=== PATIENT | male | born 1960 | race Caucasian/White ===

== ENCOUNTER → 2018-03-07 | Outpatient (CLI) | payer MEDICARE, OTHER ==
[~2018-03-07] MED LIST: ABAC300; ALBU90OI INH; AMLO10 PO; AMOCLA875 PO; Ceftriaxone2 G1 IV; Emla Cream30 GM TP; FENT25TP TOP; FENT50TP TOP; FLONASE ALLERG9.9 ML; GLIM2 PO; IBUP800 PO; LATA.005SO BOTHEYES; LATANOPROST2.5 ML OP; LEVO750 PO; LISI20 PO; LISI5 PO; METF500 PO; OMEP20ER PO; ONDA8 PO; OXYACE5T PO; OXYC10ER PO; OXYC10TA19 PO; OXYC1TAB11 PO; PROB500 PO; PROCTOSOL-HC30 GM PR; PROM25 PO; Percocet 10-321 EACH PO; Prinivil10 MG PO; TAMS.4ER PO; TRIHYD253A PO; TRIHYD253B PO; Testostero100 MG/1 M IM; Triamterene W/1 EACH PO; VARE1 PO; [UNRECOGNIZED DRUG - OTHER]
== END ==
LOC: LAB SHORT 08:16 → PLD 08:16
DX: D48.5 Neoplasm of uncertain behavior of skin (principal)
CPT/HCPCS: 88305

== ENCOUNTER 2020-01-28 20:56 | Emergency (ER) | payer MEDICARE, OTHER ==
[~2020-01-28] VITALS: Ht 182.9 cm; Wt 145.2 kg
[~2020-01-28 20:56] MED LIST changes: +FENT50TP
[2020-01-28 21:39] LABS: BASOPHILS ABSOLUTE AUTO 0.02 K/mm3 (0.00-0.23); BASOPHILS PERCENT AUTO 1 % (0-2); EOSINOPHILS ABSOLUTE AUTO 0.13 K/mm3 (0.00-0.68); EOSINOPHILS PERCENT AUTO 3 % (0-6); Hematocrit 51.8 % (37.0-53.0); Hemoglobin 16.5 g/dL (13.5-17.5); IMMATURE GRAN ABSOLUTE AUTO 0.02 K/mm3 (0.00-0.10); IMMATURE GRAN PERCENT AUTO 1 % (0-1); LYMPHOCYTES ABSOLUTE AUTO 1.42 K/mm3 (0.84-5.20); LYMPHOCYTES PERCENT AUTO 32 % (21-46); MONOCYTES ABSOLUTE AUTO 0.56 K/mm3 (0.16-1.47); MONOCYTES PERCENT AUTO 13 % (4-13); Mean Corpuscular HGB Conc 31.9 g/dL (31.5-36.5); Mean Corpuscular Volume 91 fL (80-100); Mean Platelet Volume 9.7 fL (9.1-12.4); NEUTROPHILS ABSOLUTE AUTO 2.28 K/mm3 (1.96-9.15); NEUTROPHILS PERCENT AUTO 51 % (41-73); Platelet Count 168 K/mm3 (150-400); RDW Coefficient Variation 13.2 % (11.7-14.2); RDW Standard Deviation 44.3 fL (35.1-46.3); Red Blood Cell Count 5.68 M/mm3 (4.30-5.90); White Blood Cell Count 4.43 K/mm3 (4.00-11.30)
[2020-01-28 22:27] LABS: Alanine Aminotransfer (ALT/SGP 72 U/L (12-78); Albumin, Blood 3.7 g/dL (3.4-5.0); Alk Phos 52 U/L (50-136); Anion Gap 6 mmol/L (6-16); Aspartate Aminotrans (AST/SGOT 56 U/L (12-37); Bilirubin, Total 0.3 mg/dL (0.1-1.0); Blood Urea Nitrogen 20 mg/dL (8-24); Bun/Creatinine Ratio 17.4 (12.0-20.0); CO2, Blood 31 mmol/L (21-32); Chloride, Blood 105 mmol/L (98-108); Creatinine, Blood 1.15 mg/dL (0.60-1.20); Globulin, Blood 3.7 g/dL (2.2-4.0); Glomerular Filtration Rate >60 (60-); Glucose, Blood 128 mg/dL (70-99); Potassium, Blood 3.5 mmol/L (3.5-5.5); Sodium, Blood 142 mmol/L (136-145); Total Protein, Blood 7.4 g/dL (6.4-8.2); Troponin I 0.016 ng/mL (0.000-0.040)
[2020-01-28] MEDS ORDERED: BENZ100A PO (23:07)
[2020-01-28] MEDS ORDERED: ALBU90OI INH (23:07)
== END 2020-01-28 23:22 | disposition home or self-care (01) ==
LOC: ER 20:56
PROVIDERS: Physician Assistant
DX: J40 Bronchitis, not specified as acute or chronic (principal); I10 Essential (primary) hypertension; E11.9 Type 2 diabetes mellitus without complications; Z88.2 Allergy status to sulfonamides; Z91.041 Radiographic dye allergy status; Z88.8 Allergy status to other drugs, medicaments and biological substances; Z79.899 Other long term (current) drug therapy; Z87.891 Personal history of nicotine dependence; Z79.84 Long term (current) use of oral hypoglycemic drugs
CPT/HCPCS: 36415; 71045; 80053; 84484; 85025; 93005; 93010; 99284-25

== ENCOUNTER → 2020-02-18 | Outpatient (CLI) | payer MEDICARE, OTHER ==
[~2020-02-18] MED LIST changes: +BENZ100A PO
== END | disposition home or self-care (01) ==
LOC: PLD 09:56 → LAB SHORT 09:56
DX: D48.5 Neoplasm of uncertain behavior of skin (principal)
CPT/HCPCS: 88305

== ENCOUNTER → 2022-09-14 | Outpatient (CLI) | payer MEDICARE, BC | LOC: LAB SHORT 08:36 → PLD 08:36 | DX: C44.519 Basal cell carcinoma of skin of other part of trunk (principal) | CPT/HCPCS: 88305 ==

== ENCOUNTER → 2023-04-12 | Outpatient (CLI) | payer MEDICARE, BC | END | disposition home or self-care (01) | LOC: LAB SHORT 15:56 → PLD 15:56 | DX: L82.1 Other seborrheic keratosis (principal) | CPT/HCPCS: 88305 ==

== ENCOUNTER → 2023-12-27 | Outpatient (CLI) | payer MEDICARE, BC | END | disposition home or self-care (01) | LOC: PLD 08:05 → LAB SHORT 08:05 | DX: D23.9 Other benign neoplasm of skin, unspecified (principal) | CPT/HCPCS: 88305 ==

== ENCOUNTER → 2024-02-27 | Outpatient (CLI) | payer MEDICARE, BC | END | disposition home or self-care (01) | LOC: LAB SHORT 15:39 → LAB 15:39 | DX: J44.1 Chronic obstructive pulmonary disease with (acute) exacerbation (principal) | CPT/HCPCS: 87070; 87205 ==

== ENCOUNTER 2024-06-21 03:50 | Day surgery (SDC) | payer MEDICARE, BC ==
[2024-06-21] MEDS ORDERED: IMMUN GLOB G(IGG)/PRO/IGA 0-50 100 ML IV SCH (06:50)
[2024-06-21 08:12] VITALS: BP 139/72
--- NOTE | 2024-06-21 08:45 | NUR ---
ATTEMPTED TO CALL OFFICE FOR ORDER CLARIFICATION. THE MAINS AND SERVICE SUPERVISOR SAID THERE WAS NOONE AVAILABLE TO PROVIDE ORDER CLARIFICATION AND THAT I COULD LEAVE A MESSAGE WITH THE MA IN THE OFFICE. I NOTIFIED THEM THAT WE CAN ONLY ADMINISTER IN 10G INCREMENTS ANF THE ORDER IS FOR A HALF BOTTLE SO WE CAN ONLY INFUSE 50G OR 60 G AND THAT WE WILL GIVE 50G TODAY UNTIL FURTHER CLARIFICATION RECIEVED
[2024-06-21 08:58] VITALS: BP 122/68
[2024-06-21 09:35] VITALS: BP 119/71
[2024-06-21 09:54] VITALS: BP 118/71
== END 2024-06-21 10:21 | disposition home or self-care (01) ==
LOC: ATC 03:50
DX: D83.8 Other common variable immunodeficiencies (principal); T45.1X5S Adverse effect of antineoplastic and immunosuppressive drugs, sequela; D84.821 Immunodeficiency due to drugs; E66.9 Obesity, unspecified; E11.9 Type 2 diabetes mellitus without complications; Z87.891 Personal history of nicotine dependence
CPT/HCPCS: 96365; 96366; J1459

== ENCOUNTER 2024-07-19 01:13 | Day surgery (SDC) | payer MEDICARE, BC ==
[~2024-07-19] VITALS: Wt 150.0 kg
[2024-07-19] MEDS ORDERED: IMMUN GLOB G(IGG)/PRO/IGA 0-50 100 ML IV SCH (05:00)
[2024-07-19 07:58] VITALS: BP 154/86
[2024-07-19 08:37] VITALS: BP 140/85
[2024-07-19 08:55] VITALS: BP 141/86
[2024-07-19 09:12] VITALS: BP 156/94
[2024-07-19 09:30] VITALS: BP 151/84
[2024-07-19 09:57] VITALS: BP 154/91
== END 2024-07-19 10:01 | disposition home or self-care (01) ==
LOC: ATC 01:13
DX: D83.8 Other common variable immunodeficiencies (principal); E11.9 Type 2 diabetes mellitus without complications; J45.909 Unspecified asthma, uncomplicated
CPT/HCPCS: 96365; 96366; J1459

== ENCOUNTER 2024-08-16 02:51 | Day surgery (SDC) | payer MEDICARE, BC ==
[2024-08-16] MEDS ORDERED: IMMUN GLOB G(IGG)/PRO/IGA 0-50 100 ML IV SCH (06:00)
[2024-08-16 08:04] VITALS: BP 136/78
[2024-08-16 08:44] VITALS: BP 133/68
[2024-08-16 08:58] VITALS: BP 127/76
[2024-08-16 09:16] VITALS: BP 133/75
[2024-08-16 09:31] VITALS: BP 136/75
== END 2024-08-16 10:02 | disposition home or self-care (01) ==
LOC: ATC 02:51
DX: D83.8 Other common variable immunodeficiencies (principal)
CPT/HCPCS: 96365; 96366; J1459

== ENCOUNTER 2024-09-13 05:24 | Day surgery (SDC) | payer MEDICARE, BC ==
[2024-09-13] MEDS ORDERED: IMMUN GLOB G(IGG)/PRO/IGA 0-50 100 ML IV SCH (06:00)
[2024-09-13 09:12] VITALS: BP 141/80
[2024-09-13 09:47] VITALS: BP 133/75
[2024-09-13 10:05] VITALS: BP 140/74
[2024-09-13 10:20] VITALS: BP 140/70
[2024-09-13 10:35] VITALS: BP 143/81
[2024-09-15 01:45] LABS: IMMUNOGLOBULIN G 650 mg/dL (768-1632)
== END 2024-09-13 11:04 | disposition home or self-care (01) ==
LOC: ATC 05:24
PROVIDERS: Internal Medicine
DX: D83.8 Other common variable immunodeficiencies (principal); T45.1X5S Adverse effect of antineoplastic and immunosuppressive drugs, sequela; J47.9 Bronchiectasis, uncomplicated; E66.9 Obesity, unspecified; E11.9 Type 2 diabetes mellitus without complications; F32.9 Major depressive disorder, single episode, unspecified; D80.1 Nonfamilial hypogammaglobulinemia; Z87.891 Personal history of nicotine dependence
CPT/HCPCS: 82784; 96365; 96366; J1459

== ENCOUNTER 2024-10-11 02:52 | Day surgery (SDC) | payer MEDICARE, BC ==
[~2024-10-11] VITALS: Wt 153.8 kg
[2024-10-11] MEDS ORDERED: IMMUN GLOB G(IGG)/PRO/IGA 0-50 100 ML IV SCH (06:00)
[2024-10-11 08:06] VITALS: BP 152/83
[2024-10-11 08:39] VITALS: BP 139/80
[2024-10-11 08:54] VITALS: BP 142/76
[2024-10-11 09:09] VITALS: BP 139/78
[2024-10-11 09:27] VITALS: BP 139/79
== END 2024-10-11 10:13 | disposition home or self-care (01) ==
LOC: ATC 02:52
DX: D84.821 Immunodeficiency due to drugs (principal); D83.8 Other common variable immunodeficiencies; E11.9 Type 2 diabetes mellitus without complications; I10 Essential (primary) hypertension; T45.1X5S Adverse effect of antineoplastic and immunosuppressive drugs, sequela; Z87.891 Personal history of nicotine dependence
CPT/HCPCS: 96365; 96366; J1459

== ENCOUNTER 2024-11-22 02:39 | Day surgery (SDC) | payer OTHER ==
[2024-11-22] MEDS ORDERED: IMMUN GLOB G(IGG)/PRO/IGA 0-50 100 ML IV SCH (06:00)
[2024-11-22 07:57] VITALS: BP 130/105
[2024-11-22 08:53] VITALS: BP 157/82
[2024-11-22 09:10] VITALS: BP 136/92
[2024-11-22 09:27] VITALS: BP 155/60
[2024-11-22 09:45] VITALS: BP 161/97
== END 2024-11-22 10:35 | disposition home or self-care (01) ==
LOC: ATC 02:39
DX: D84.821 Immunodeficiency due to drugs (principal); T45.1X5D Adverse effect of antineoplastic and immunosuppressive drugs, subsequent encounter; D83.8 Other common variable immunodeficiencies; D80.1 Nonfamilial hypogammaglobulinemia; J47.9 Bronchiectasis, uncomplicated; E11.9 Type 2 diabetes mellitus without complications; I10 Essential (primary) hypertension; E66.9 Obesity, unspecified; Z68.41 Body mass index [BMI] 40.0-44.9, adult; Z87.891 Personal history of nicotine dependence
CPT/HCPCS: 96365; 96366; J1459

== ENCOUNTER 2024-12-20 00:24 | Day surgery (SDC) | payer OTHER ==
[~2024-12-20] VITALS: Wt 156.6 kg
[~2024-12-20 00:24] MED LIST changes: +IMMUN GLOB G(IGG)/PRO/IGA 0-50 100 ML IV SCH
[2024-12-20 08:48] VITALS: BP 142/76
[2024-12-20 09:31] VITALS: BP 134/84
[2024-12-20 09:50] VITALS: BP 133/83
[2024-12-20 10:03] VITALS: BP 132/83
[2024-12-20 10:20] VITALS: BP 138/92
== END 2024-12-20 11:07 | disposition home or self-care (01) ==
LOC: ATC 00:24
DX: D84.821 Immunodeficiency due to drugs (principal); T45.1X5A Adverse effect of antineoplastic and immunosuppressive drugs, initial encounter; D83.8 Other common variable immunodeficiencies; E11.9 Type 2 diabetes mellitus without complications; J45.909 Unspecified asthma, uncomplicated; Z87.891 Personal history of nicotine dependence; Z88.2 Allergy status to sulfonamides; Z88.8 Allergy status to other drugs, medicaments and biological substances; Z79.899 Other long term (current) drug therapy
CPT/HCPCS: 96365; 96366; J1459

== ENCOUNTER 2025-01-16 02:28 | Day surgery (SDC) | payer OTHER ==
[2025-01-16 08:00] VITALS: BP 143/73
[2025-01-16] MEDS ORDERED: OZEMPIC0.25 MG/02 SC (08:06)
[2025-01-16 08:35] VITALS: BP 140/82
[2025-01-16 08:52] VITALS: BP 141/76
[2025-01-16 09:07] VITALS: BP 137/83
[2025-01-16 09:23] VITALS: BP 145/86
== END 2025-01-16 10:08 | disposition home or self-care (01) ==
LOC: ATC 02:28
DX: D83.8 Other common variable immunodeficiencies (principal); D84.821 Immunodeficiency due to drugs; D80.1 Nonfamilial hypogammaglobulinemia; C85.90 Non-Hodgkin lymphoma, unspecified, unspecified site; E11.9 Type 2 diabetes mellitus without complications; J45.909 Unspecified asthma, uncomplicated; Z87.891 Personal history of nicotine dependence
CPT/HCPCS: 96365; 96366; J1459

== ENCOUNTER 2025-02-14 04:06 | Day surgery (SDC) | payer OTHER ==
[~2025-02-14 04:06] MED LIST changes: -IMMUN GLOB G(IGG)/PRO/IGA 0-50 100 ML IV SCH; +OZEMPIC0.25 MG/02 SC
[2025-02-14] MEDS ORDERED: IMMUN GLOB G(IGG)/PRO/IGA 0-50 100 ML IV SCH (06:00)
[2025-02-14 08:15] VITALS: BP 110/83
[2025-02-14 08:44] VITALS: BP 121/69
[2025-02-14 09:00] VITALS: BP 127/68
[2025-02-14 09:15] VITALS: BP 145/85
[2025-02-14 09:32] VITALS: BP 137/87
[2025-02-14] MEDS ORDERED: OZEMPIC0.25 MG/02 SC (10:29)
[2025-02-15 21:17] LABS: IMMUNOGLOBULIN G 722 mg/dL (768-1632)
== END 2025-02-14 10:10 | disposition home or self-care (01) ==
LOC: ATC 04:06
PROVIDERS: Internal Medicine
DX: D84.821 Immunodeficiency due to drugs (principal); T45.1X5S Adverse effect of antineoplastic and immunosuppressive drugs, sequela; D83.8 Other common variable immunodeficiencies; E11.9 Type 2 diabetes mellitus without complications; E66.9 Obesity, unspecified
CPT/HCPCS: 82784; 96365; 96366; J1459

== ENCOUNTER 2025-03-14 01:37 | Day surgery (SDC) | payer OTHER ==
[2025-03-14] MEDS ORDERED: IMMUN GLOB G(IGG)/PRO/IGA 0-50 100 ML IV SCH (06:00)
[2025-03-14 08:02] VITALS: BP 143/80
[2025-03-14 08:40] VITALS: BP 133/80
[2025-03-14] MEDS ORDERED: Gabapentin600 MG PO (08:43)
[2025-03-14] MEDS ORDERED: LOSARTAN-HCTZ1 EACH PO (08:44)
[2025-03-14 08:54] VITALS: BP 130/81
[2025-03-14 09:30] VITALS: BP 137/76
== END 2025-03-14 10:08 | disposition home or self-care (01) ==
LOC: ATC 01:37
DX: D84.821 Immunodeficiency due to drugs (principal); T45.1X5S Adverse effect of antineoplastic and immunosuppressive drugs, sequela; D83.8 Other common variable immunodeficiencies; E11.9 Type 2 diabetes mellitus without complications; E66.9 Obesity, unspecified; Z68.41 Body mass index [BMI] 40.0-44.9, adult; Z87.891 Personal history of nicotine dependence; Z88.2 Allergy status to sulfonamides; Z88.8 Allergy status to other drugs, medicaments and biological substances
CPT/HCPCS: 96365; 96366; J1459

== ENCOUNTER 2025-05-07 03:10 | Day surgery (SDC) | payer OTHER ==
[~2025-05-07] VITALS: Wt 144.2 kg
[~2025-05-07 03:10] MED LIST changes: +Gabapentin600 MG PO; +LOSARTAN-HCTZ1 EACH PO
[2025-05-07] MEDS ORDERED: IMMUN GLOB G(IGG)/PRO/IGA 0-50 100 ML IV SCH (06:00)
[2025-05-07 08:48] VITALS: BP 120/79
[2025-05-07 09:18] VITALS: BP 122/72
[2025-05-07 09:37] VITALS: BP 133/89
[2025-05-07 09:53] VITALS: BP 115/82
[2025-05-07 10:10] VITALS: BP 115/74
== END 2025-05-07 11:04 | disposition home or self-care (01) ==
LOC: ATC 03:10
DX: D84.821 Immunodeficiency due to drugs (principal); T45.1X5S Adverse effect of antineoplastic and immunosuppressive drugs, sequela; D83.8 Other common variable immunodeficiencies; J45.909 Unspecified asthma, uncomplicated; I10 Essential (primary) hypertension; E11.9 Type 2 diabetes mellitus without complications; E66.9 Obesity, unspecified; Z68.41 Body mass index [BMI] 40.0-44.9, adult; Z87.891 Personal history of nicotine dependence; Z79.84 Long term (current) use of oral hypoglycemic drugs; Z79.85 Long-term (current) use of injectable non-insulin antidiabetic drugs; Z79.899 Other long term (current) drug therapy; Z88.2 Allergy status to sulfonamides; Z88.8 Allergy status to other drugs, medicaments and biological substances
CPT/HCPCS: 96365; 96366; J1459

== ENCOUNTER 2025-06-07 03:41 | Day surgery (SDC) | payer OTHER ==
[~2025-06-07 03:41] MED LIST changes: +IMMUN GLOB G(IGG)/PRO/IGA 0-50 100 ML IV SCH
[2025-06-07 07:52] VITALS: BP 130/74
[2025-06-07 08:35] VITALS: BP 117/70
[2025-06-07 08:50] VITALS: BP 113/69
[2025-06-07 09:10] VITALS: BP 130/69
[2025-06-07 09:26] VITALS: BP 116/68
== END 2025-06-07 10:20 | disposition home or self-care (01) ==
LOC: ATC 03:41
DX: D84.821 Immunodeficiency due to drugs (principal); T45.1X5A Adverse effect of antineoplastic and immunosuppressive drugs, initial encounter; D83.8 Other common variable immunodeficiencies; C85.90 Non-Hodgkin lymphoma, unspecified, unspecified site; E11.9 Type 2 diabetes mellitus without complications; I10 Essential (primary) hypertension; Z87.891 Personal history of nicotine dependence
CPT/HCPCS: 96365; 96366; J1459

== ENCOUNTER 2025-07-05 02:46 | Day surgery (SDC) | payer OTHER ==
[~2025-07-05] VITALS: Ht 182.9 cm; Wt 144.2 kg
[2025-07-05] VITALS (11 sets, daily range): BP systolic 119–146; BP diastolic 74–88
[~2025-07-05 02:46] MED LIST changes: -IMMUN GLOB G(IGG)/PRO/IGA 0-50 100 ML IV SCH
[2025-07-05] MEDS ORDERED: IMMUN GLOB G(IGG)/PRO/IGA 0-50 100 ML IV SCH (06:00)
== END 2025-07-05 11:45 | disposition home or self-care (01) ==
LOC: ATC 02:46
DX: D83.8 Other common variable immunodeficiencies (principal); D84.821 Immunodeficiency due to drugs; T45.1X5S Adverse effect of antineoplastic and immunosuppressive drugs, sequela; E11.9 Type 2 diabetes mellitus without complications; I10 Essential (primary) hypertension; J45.909 Unspecified asthma, uncomplicated; Z87.891 Personal history of nicotine dependence; Z79.84 Long term (current) use of oral hypoglycemic drugs; Z79.85 Long-term (current) use of injectable non-insulin antidiabetic drugs; Z79.899 Other long term (current) drug therapy; Z88.2 Allergy status to sulfonamides; Z88.8 Allergy status to other drugs, medicaments and biological substances; Z91.048 Other nonmedicinal substance allergy status
CPT/HCPCS: 96365; 96366; J1459

== ENCOUNTER 2025-08-06 02:13 | Day surgery (SDC) | payer OTHER ==
[~2025-08-06 02:13] MED LIST changes: +IMMUN GLOB G(IGG)/PRO/IGA 0-50 100 ML IV SCH
[2025-08-06 08:18] VITALS: BP 145/79
[2025-08-06 08:40] VITALS: BP 124/79
[2025-08-06 08:58] VITALS: BP 133/75
[2025-08-06 09:15] VITALS: BP 128/84
[2025-08-06 09:34] VITALS: BP 137/86
[2025-08-06] MEDS ORDERED: IMMUN GLOB G(IGG)/PRO/IGA 0-50 100 ML IV SCH (11:50)
== END 2025-08-06 10:30 | disposition home or self-care (01) ==
LOC: ATC 02:13
DX: D83.8 Other common variable immunodeficiencies (principal); T50.Z Poisoning by, adverse effect of and underdosing of other vaccines and biological substances; D84.821 Immunodeficiency due to drugs; E11.9 Type 2 diabetes mellitus without complications; C85.90 Non-Hodgkin lymphoma, unspecified, unspecified site; I10 Essential (primary) hypertension; J45.909 Unspecified asthma, uncomplicated; E66.9 Obesity, unspecified; Z68.41 Body mass index [BMI] 40.0-44.9, adult; Z87.891 Personal history of nicotine dependence
CPT/HCPCS: 96365; 96366; J1459

== ENCOUNTER 2025-09-04 00:16 | Day surgery (SDC) | payer OTHER ==
[~2025-09-04 00:16] MED LIST changes: -IMMUN GLOB G(IGG)/PRO/IGA 0-50 100 ML IV SCH
[2025-09-04] MEDS ORDERED: IMMUN GLOB G(IGG)/PRO/IGA 0-50 100 ML IV SCH (06:00)
[2025-09-04 07:50] VITALS: BP 116/74
[2025-09-04 08:42] VITALS: BP 116/70
[2025-09-04 08:49] VITALS: BP 125/72
[2025-09-04 09:11] VITALS: BP 137/79
[2025-09-04 09:29] VITALS: BP 128/78
== END 2025-09-04 10:32 | disposition home or self-care (01) ==
LOC: ATC 00:16
DX: D84.821 Immunodeficiency due to drugs (principal); T45.1X5S Adverse effect of antineoplastic and immunosuppressive drugs, sequela; D83.8 Other common variable immunodeficiencies; E11.9 Type 2 diabetes mellitus without complications; C85.9A Non-Hodgkin lymphoma, unspecified, in remission; Z88.2 Allergy status to sulfonamides; Z88.8 Allergy status to other drugs, medicaments and biological substances; Z87.891 Personal history of nicotine dependence
CPT/HCPCS: 96365; 96366; 99211; J1459

== ENCOUNTER 2025-10-17 03:25 | Day surgery (SDC) | payer OTHER ==
[~2025-10-17] VITALS: Wt 134.3 kg
[2025-10-17] MEDS ORDERED: IMMUN GLOB G(IGG)/PRO/IGA 0-50 100 ML IV SCH (06:00)
[2025-10-17 07:33] VITALS: BP 122/75
[2025-10-17 08:13] VITALS: BP 120/69
[2025-10-17 08:28] VITALS: BP 124/69
[2025-10-17 08:57] VITALS: BP 141/78
== END 2025-10-17 09:55 | disposition home or self-care (01) ==
LOC: ATC 03:25
DX: D83.8 Other common variable immunodeficiencies (principal); D84.821 Immunodeficiency due to drugs; T45.1X5A Adverse effect of antineoplastic and immunosuppressive drugs, initial encounter; C85.90 Non-Hodgkin lymphoma, unspecified, unspecified site; E11.9 Type 2 diabetes mellitus without complications; R05.3 Chronic cough; E66.9 Obesity, unspecified; Z87.891 Personal history of nicotine dependence; Z79.84 Long term (current) use of oral hypoglycemic drugs; Z79.899 Other long term (current) drug therapy
CPT/HCPCS: 96365; 96366; 99211; J1459